=== PATIENT | female | born 1995 | race Caucasian/White ===

== ENCOUNTER 2018-05-09 12:24 | Emergency (ER) | payer OTHER ==
[~2018-05-09] VITALS: Ht 157.5 cm; Wt 51.8 kg
[~2018-05-09 12:24] MED LIST: CALNA PO; CLARITIN10 M1 PO; FERRAPLUS 90 PO; NITROFURANTN100 MG PO; PRE-NATAL PO; SPRINTEC 2828 DAY PO; TESSALON PER100 MG PO; ZITHROMAX250 MG PO; ZOFRAN4 MG/TAB PO
[2018-05-09 13:45] LABS: URINE BILIRUBIN - DIPSTICK NEGATIVE (NEGATIVE); URINE BLOOD DIPSTICK LARGE (NEGATIVE); URINE COLOR YELLOW; URINE GLUCOSE - DIPSTICK NEGATIVE (NEGATIVE); URINE KETONE NEGATIVE (NEGATIVE); URINE LEUK ESTERASE NEGATIVE (NEGATIVE); URINE NITRITE - DIPSTICK NEGATIVE (Negative); URINE PH 5.5 (4.5-8.0); URINE PROTEIN - DIPSTICK NEGATIVE (NEG-TRACE); URINE UROBILINOGEN - DIPSTICK 0.2 E.U./dL (0.2)
[2018-05-09 13:53] LABS: MEAN CORPUSCULAR HGB 28.7 pG CALC (26.0-32.0); MEAN CORPUSCULAR HGB CONC 31.9 g/L CALC (32.0-36.0); NEUT# 1.84 thou/uL (2.00-7.15); RED BLOOD COUNT 4.15 mill/uL (4.20-5.60); RED CELL DISTRI WIDTH 12.5 % (11.5-15.5)
[2018-05-09 13:58] LABS: HEMATOCRIT 37.3 % (37.0-47.0); HEMOGLOBIN 11.9 g/dl (12.0-16.0); MEAN CELL VOLUME 89.9 fL CALC (80.0-100.0)
[2018-05-09 13:59] LABS: URINE RBC TNTC RBC/hpf (0-5); URINE SQUAMOUS EPITHELIAL CELL FEW EPI/hpf (0-FEW)
[2018-05-09 14:39] LABS: ALBUMIN 4.4 g/dL (3.2-5.0); ALKALINE PHOSPHATASE 65 u/l (38-126); ANION GAP 16 (6-22 (CALC)); BILIRUBIN, TOTAL 0.5 mg/dL (0.0-1.4); BUN 9 mg/dL (7-17); BUN/CREATININE RATIO 14 (12-20 (CALC)); CARBON DIOXIDE 24 mmol/l (22-30); CHLORIDE 103 mmol/l (95-108); CREATININE 0.6 mg/dL (0.5-1.0); GFR > 60 ML/MIN (>=60 (CALC)); GFR FOR AFR.AMER. > 60 ML/MIN (>=60 (CALC)); POTASSIUM 3.7 mmol/l (3.5-5.1); SGOT/AST 26 u/l (14-36); SODIUM 139 mmol/l (137-146); TOTAL PROTEIN 7.1 g/dL (6.3-8.2)
[2018-05-09] MEDS ORDERED: ZOFRAN ODT4 MG PO (15:18)
[2018-05-09 15:40] VITALS: BP 118/68
== END 2018-05-09 15:51 | disposition home or self-care (01) | DRG 149 ==
LOC: ED 12:24
PROVIDERS: Emergency Medicine
DX: R42 Dizziness and giddiness (principal)

== ENCOUNTER 2019-02-28 | Emergency (ER) | payer BC, OTHER ==
[~2019-02-28] MED LIST changes: +ZOFRAN ODT4 MG PO
[2019-02-28] MEDS ORDERED: ZOLOFT50 MG PO (11:02)
== END 2019-02-28 12:19 | disposition home or self-care (01) | DRG 866 ==
DX: B34.9 Viral infection, unspecified (principal)

== ENCOUNTER 2021-03-27 11:36 | Emergency (ER) | payer OTHER ==
[~2021-03-27] VITALS: Ht 157.5 cm; Wt 62.0 kg
[~2021-03-27 11:36] MED LIST changes: +ZOLOFT50 MG PO
[2021-03-27 12:23] LABS: URINE BILIRUBIN - DIPSTICK NEGATIVE (NEGATIVE); URINE BLOOD DIPSTICK MODERATE (NEGATIVE); URINE COLOR YELLOW; URINE GLUCOSE - DIPSTICK NEGATIVE (NEGATIVE); URINE KETONE NEGATIVE (NEGATIVE); URINE LEUK ESTERASE NEGATIVE (NEGATIVE); URINE PH 6.5 (4.5-8.0); URINE PROTEIN - DIPSTICK NEGATIVE (NEG-TRACE); URINE SPECIFIC GRAVITY <=1.005; URINE UROBILINOGEN - DIPSTICK 0.2 E.U./dL (0.2)
[2021-03-27 12:25] LABS: URINE NITRITE - DIPSTICK NEGATIVE (Negative)
[2021-03-27 12:30] LABS: URINE SQUAMOUS EPITHELIAL CELL FEW EPI/hpf (0-FEW); URINE WBC 0-2 WBC/hpf (0-5)
[2021-03-27 12:43] LABS: MEAN CORPUSCULAR HGB 29.9 pG CALC (26.0-32.0); MEAN CORPUSCULAR HGB CONC 31.6 g/dL CAL (32.0-36.0); NEUT# 4.08 thou/uL (2.00-7.15); RED BLOOD COUNT 4.35 mill/uL (4.20-5.60); RED CELL DISTRI WIDTH 12.6 % (11.5-15.5)
[2021-03-27 12:46] LABS: HEMATOCRIT 41.1 % (37.0-47.0); MEAN CELL VOLUME 94.5 fL CALC (80.0-100.0)
[2021-03-27 12:56] LABS: ALBUMIN 4.4 g/dL (3.2-5.0); ALKALINE PHOSPHATASE 74 u/l (38-126); ANION GAP 10 (6-22 (CALC)); BILIRUBIN, TOTAL 0.3 mg/dL (0.0-1.4); BUN 6 mg/dL (7-17); BUN/CREATININE RATIO 9 (12-20 (CALC)); CARBON DIOXIDE 30 mmol/l (22-30); CHLORIDE 104 mmol/l (95-108); CREATININE 0.7 mg/dL (0.5-1.0); GFR > 60 ML/MIN (>=60 (CALC)); GFR FOR AFR.AMER. > 60 ML/MIN (>=60 (CALC)); POTASSIUM 3.6 mmol/l (3.5-5.1); SGOT/AST 24 u/l (14-36); SODIUM 140 mmol/l (137-146); TOTAL PROTEIN 7.8 g/dL (6.3-8.2)
[2021-03-27 19:20] VITALS: BP 117/49
== END 2021-03-27 19:48 | disposition home or self-care (01) | DRG 761 ==
LOC: ED 11:36
PROVIDERS: Emergency Medicine
DX: N93.8 Other specified abnormal uterine and vaginal bleeding (principal); F41.9 Anxiety disorder, unspecified; F32.A Depression, unspecified; Z20.2 Contact with and (suspected) exposure to infections with a predominantly sexual mode of transmission